=== PATIENT | male | born 1950 | race African-American/Black ===

== ENCOUNTER 2017-11-03 10:46 | Emergency (ER) | payer OTHER ==
[2017-11-03] MEDS ORDERED: LIDOCAINE 4%/MENTHOL 1% PATCH TD ONE (14:19)
--- NOTE | 2017-11-03 14:24 | EDPHY ---
H & P Time Seen by Provider: 11/03/17 13:26 HPI/ROS: CHIEF COMPLAINT: Back pain HISTORY OF PRESENT ILLNESS: 67-year-old male presents to the emergency department with low back pain. He denies any known trauma or injury. Patient has a history of ongoing chronic back pain. He has known degenerative changes in his back. He had an MRI 1 year ago. He has been taking ibuprofen and Aleve without relief. He denies radiation of pain in his lower extremities. Denies footdrop. Denies bowel or bladder incontinence. He has had previous injections in his back. He has a scheduled appointment with Dr. Wagner Hernandez on . Patient states that he just cannot take the pain anymore. He just finished Medrol Dosepak that was prescribed to him 1 week ago. He also finish Robaxin 500 mg with only minimal relief. REVIEW OF SYSTEMS: Constitutional: No fever, no chills. Eyes: No double or blurry vision. ENT: No sore throat. Respiratory: No cough, no shortness of breath. Cardiac: No chest pain. Gastrointestinal: No abdominal pain, vomiting or diarrhea. Genitourinary: No dysuria. Musculoskeletal: Back pain as above. No neck pain. Skin: No rashes. Neurological: No headache. Past Medical/Surgical History: Chronic back problems Social History: Single lives in [place] Smoking Status: Never smoked Physical Exam: General Appearance: Alert, no distress. Eyes: Pupils equal and round. Extraocular motions are all intact. ENT: Mouth: Mucous membranes moist. Respiratory: No wheezing, rhonchi, or rales, lungs are clear to auscultation. Cardiovascular: Regular rate and rhythm. Gastrointestinal: Abdomen is soft and nontender, no masses, no rebound or guarding, bowel sounds normal. Neurological: Alert and oriented x 3, cranial nerves II through XII grossly intact Skin: Warm and dry, no rashes. Musculoskeletal: Nontender to palpate along the cervical, thoracic or lumbar spine. Neck is supple. Straight leg raise is negative bilaterally. Reflexes are 2+ and equal for lower extremities bilaterally. Normal heel-toe walking. He is unable to bend down to touch his toes because of pain. Extremities: Full range of motion and no peripheral edema. Psychiatric: Patient is oriented X 3, there is no agitation. Constitutional: Initial Vital Signs Temperature (C) 37 C 11/03/17 10:57 Heart Rate 93 11/03/17 10:57 Respiratory Rate 18 11/03/17 10:57 Blood Pressure 133/92 H 11/03/17 10:57 O2 Sat (%) 93 11/03/17 10:57 O2 Delivery Mode Room Air Allergies/Adverse Reactions: No Known Allergies Allergy (Verified 11/03/17 10:55) Home Medications: Medication Instructions Recorded Cyclobenzaprine [Flexeril] 10 mg PO TIDPRN PRN #12 tab 11/03/17 Methocarbamol 11/03/17 methylPREDNISolone 11/03/17 oxyCODONE/APAP 5/325 [Percocet 1 - 2 tab PO Q4-6PRN PRN #15 tab 11/03/17 5/325] Medical Decision Making ED Course/Re-evaluation: 67-year-old male presents to the emergency department with back pain. I do not think MRI is indicated in the emergency department. The patient has a normal examination with neurovascularly intact. The patient just finished a Medrol Dosepak. He will be prescribed Flexeril and was given Percocet per his request. He was also given lidocaine patch. He will follow up with Dr. Wagner Hernandez as scheduled on 11/20/2017 or call to see if he can be seen sooner. Patient was given precautions including return if he develops footdrop, bowel or bladder incontinence, or if he had any other concerns. He was comfortable with this plan. Differential Diagnosis: Back pain including but not limited to muscular pain, herniated disc, spine fracture, intra-abdominal causes and urinary tract infection. - Data Points Medications Given: Discontinued Medications Miscellaneous Medication (Icy Hot Lidocaine/Menthol 4%/1% Patch) 1 patch TD EDNOW ONE Stop: 11/03/17 14:20 Last Admin: 11/03/17 14:25 Dose: 1 patch Departure - Departure Disposition: Home, Routine, Self-Care Clinical Impression: Low back strain Qualifiers: Encounter type: initial encounter Qualified Code(s): S39.012A - Strain of muscle, fascia and tendon of lower back, initial encounter Condition: Good Instructions: Low Back Strain (ED) Additional Instructions: Flexeril as needed for muscular spasm. Lidocaine patch as directed. Please remove this in 12 hr as directed. Percocet for severe pain as directed. Keep scheduled follow-up appointment with Dr. Wagner Hernandez November 20 or call sooner to you tell them that you were seen in the emergency department to see if they can see you sooner. Referrals: Tamir Hernandez MD [Medical Doctor] - As per Instructions (Neurosurgeon ) Marcus Ott MD [Medical Doctor] - As per Instructions (Neurosurgeon on-call) Prescriptions: Cyclobenzaprine [Flexeril] 10 mg PO TIDPRN PRN #12 tab PRN Reason: P.r.n. Spasms oxyCODONE/APAP 5/325 [Percocet 5/325] 1 - 2 tab PO Q4-6PRN PRN #15 tab PRN Reason: For Moderate To Severe Pain
[2017-11-03 15:18] VITALS: BP 160/102
[2017-11-03] MEDS ORDERED: PATCH REMOVAL 1 EA PATCH TD SCH (21:00)
== END 2017-11-03 15:17 | disposition home or self-care (01) ==
DX: S39.012A Strain of muscle, fascia and tendon of lower back, initial encounter (principal); X58.XXXA Exposure to other specified factors, initial encounter